=== PATIENT | female | born 1970 | race Hispanic/Latino ===

== ENCOUNTER 2016-12-09 08:15 | Outpatient (CLI) | payer BC ==
--- NOTE | 2016-12-10 10:46 | Mammography Report ---
BILATERAL DIGITAL SCREENING MAMMOGRAM with CAD: 12/09/16 08:15:00 CLINICAL: Routine screening. COMPARISON:11/21/15 FINDINGS: The breasts are almost entirely fatty. No mass, architectural distortion or suspicious calcifications. IMPRESSION: No mammographic evidence of malignancy. BI-RADS CATEGORY: 1 - - Negative RECOMMENDATION: Routine mammographic screening in one year. COMMENT: Patient follow-up letters are generated by our [employer] application.
== END 2016-12-09 08:16 | disposition home or self-care (01) ==
LOC: SPVWC 08:15
PROVIDERS: ATTEND Family Medicine
DX: Z12.31 Encounter for screening mammogram for malignant neoplasm of breast (principal)
CPT/HCPCS: 77067; G0202

== ENCOUNTER 2017-12-16 08:51 | Outpatient (CLI) | payer BC ==
--- NOTE | 2017-12-17 09:52 | Mammography Report ---
BILATERAL DIGITAL SCREENING MAMMOGRAM with CAD: 12/16/17 08:51:00 CLINICAL: Routine screening. COMPARISON:12/09/16 FINDINGS: The breasts are almost entirely fatty. No mass, architectural distortion or suspicious calcifications. IMPRESSION: No mammographic evidence of malignancy. BI-RADS CATEGORY: 1 - - Negative RECOMMENDATION: Routine mammographic screening in one year. COMMENT: Patient follow-up letters are generated by our [employer] application.
== END 2017-12-16 08:52 | disposition home or self-care (01) ==
LOC: SPVWC 08:51
PROVIDERS: ATTEND Family Medicine
DX: Z12.31 Encounter for screening mammogram for malignant neoplasm of breast (principal)
CPT/HCPCS: 77067

== ENCOUNTER 2020-01-20 17:27 | Emergency (ER) | payer BC, OTHER ==
--- NOTE | 2020-01-20 19:57 | Emergency Department Report ---
Blank Doc - Documentation Documentation: The patient was seen in triage for fall with pain to upper left femur . unable to ambulate due to pain Labs/imaging ordered to evaluate for a cause of this complaint. Vital signs reviewed, patient awake and alert in NAD. plan xray
--- NOTE | 2020-01-20 20:45 | XRay Report ---
LEFT FEMUR 2 VIEWS INDICATION / CLINICAL INFORMATION: fall with pain to upper femur COMPARISON: None available. FINDINGS: BONES / JOINT(S): No acute fracture or subluxation. No significant arthritis. SOFT TISSUES: No significant abnormality. ADDITIONAL FINDINGS: None. Signer Name: Bret Melgar MD Signed: 01/20/2020 8:40 PM Workstation Name: [id number]
--- NOTE | 2020-01-20 21:09 | Emergency Department Report ---
ED Lower Extremity HPI - General Chief Complaint: Extremity Injury, Lower Stated Complaint: (L) LEG PAIN FROM FALL Time Seen by Provider: 01/20/20 19:52 Source: patient Mode of arrival: Ambulatory Limitations: No Limitations - History of Present Illness Initial Comments: Patient is a 49-year-old female presents emergency room with complaints of left posterior leg pain that began just prior to arrival. She states that she was getting a pedicure and when she was getting out of the chair she slipped in some water and fell and states that she did a split. She states that she has been ambulatory with some discomfort. She denies ever injuring in the past. She denies any numbness or weakness. She denies any past medical history. She states that she has an adverse reaction to penicillin which causes yeast infections. - Related Data Home Medications Medication Instructions Recorded Confirmed Last Taken Aspirin EC [Halfprin EC] 81 mg PO QDAY 01/15/16 01/16/16 01/13/16 Biotin [Biotin 5mg] 5 mg PO QDAY 01/15/16 01/16/16 01/15/16 Mv,Armin,Min/Iron/Folic Acid/Lut 1 each PO QDAY 01/15/16 01/16/16 01/15/16 [Complete Multi Tablet] medroxyPROGESTERone ACETATE 20 mg PO QDAY 01/15/16 01/16/16 01/15/16 [Provera] Previous Rx's Medication Instructions Recorded Last Taken Type Naproxen [EC-Naproxen] 500 mg PO BID PRN #14 tablet. 01/20/20 Unknown Rx methOCARBAMOL [Robaxin TAB] 500 mg PO QHS PRN #10 tab 01/20/20 Unknown Rx Allergies Allergy/AdvReac Type Severity Reaction Status Date / Time Penicillins Allergy yeast Unverified 01/15/16 11:04 infection ED Review of Systems ROS: Stated complaint: (L) LEG PAIN FROM FALL Other details as noted in HPI Comment: All other systems reviewed and negative ED Past Medical Hx - Past Medical History Previous Medical History?: Yes Hx Hypertension: No Hx CVA: No Hx Congestive Heart Failure: No Hx Diabetes: No Hx Deep Vein Thrombosis: No Hx Arthritis: Yes Hx Headaches / Migraines: Yes (MIGRAINES) Hx Seizures: No Hx Asthma: Yes (1989) - Surgical History Past Surgical History?: No - Social History Smoking Status: Never Smoker Substance Use Type: None - Medications Home Medications: Home Medications Medication Instructions Recorded Confirmed Last Taken Type Aspirin EC [Halfprin EC] 81 mg PO QDAY 01/15/16 01/16/16 01/13/16 History Biotin [Biotin 5mg] 5 mg PO QDAY 01/15/16 01/16/16 01/15/16 History Mv,Armin,Min/Iron/Folic Acid/Lut 1 each PO QDAY 01/15/16 01/16/16 01/15/16 History [Complete Multi Tablet] medroxyPROGESTERone ACETATE 20 mg PO QDAY 01/15/16 01/16/16 01/15/16 History [Provera] Naproxen [EC-Naproxen] 500 mg PO BID PRN #14 tablet. 01/20/20 Unknown Rx methOCARBAMOL [Robaxin TAB] 500 mg PO QHS PRN #10 tab 01/20/20 Unknown Rx ED Physical Exam - General Limitations: No Limitations General appearance: alert, in no apparent distress - Head Head exam: Present: atraumatic, normocephalic - Eye Eye exam: Present: normal appearance - ENT ENT exam: Present: mucous membranes moist - Extremities Exam Extremities exam: Present: other (ttp over the left posterior thigh in the distribution of the hamstring muscles, FROM of the LLE, no bony ttp of the LLE, she has some discomfort with flexion of the hamstring muscles but it able to flex fully, no signs of complete ligamentous or tendon rupture, neurovascularly intact) - Neurological Exam Neurological exam: Present: alert, oriented X3 - Psychiatric Psychiatric exam: Present: normal affect, normal mood - Skin Skin exam: Present: warm, dry, intact ED Course Vital Signs 01/20/20 01/20/20 01/20/20 17:47 21:18 21:30 Temperature 97.4 F L Pulse Rate 81 85 Respiratory 20 18 18 Rate Blood Pressure 141/78 Blood Pressure 145/80 [Left] O2 Sat by Pulse 97 99 Oximetry ED Lower Extremity MDM - Radiology Data Radiology results: report reviewed LEFT FEMUR 2 VIEWS INDICATION / CLINICAL INFORMATION: fall with pain to upper femur COMPARISON: None available. FINDINGS: BONES / JOINT(S): No acute fracture or subluxation. No significant arthritis. SOFT TISSUES: No significant abnormality. ADDITIONAL FINDINGS: None. Signer Name: Bret Melgar MD Signed: 01/20/2020 8:40 PM Workstation Name: [email or web address] Transcribed By: ES Dictated By: Bret Melgar MD Electronically Authenticated By: Bret Melgar MD Signed Date/Time: 01/20/202039 DD/ 37 TD/TT: - Medical Decision Making Patient is a 49-year-old female presents emergency room with complaints of left posterior leg pain that began just prior to arrival. She states that she was getting a pedicure and when she was getting out of the chair she slipped in some water and fell and states that she did a split. She states that she has been ambulatory with some discomfort. She denies ever injuring in the past. She denies any numbness or weakness. She denies any past medical history. She states that she has an adverse reaction to penicillin which causes yeast infections. VSS. on exam: ttp over the left posterior thigh in the distribution of the hamstring muscles, FROM of the LLE, no bony ttp of the LLE, she has some discomfort with flexion of the hamstring muscles but it able to flex fully, no signs of complete ligamentous or tendon rupture, neurovascularly intact. XR left femur: No acute fracture or subluxation. No significant arthritis. SOFT TISSUES: No significant abnormality. Discussed results with patient. Patient's pain treated while in the emergency department as she did not drive. Patient given prescription for naproxen and Robaxin. Advised patient please take medication as prescribed. Do not drive or operate heavy machinery while taking muscle relaxer due to potential for drowsiness. May use ice pack, heating pad, rest, Epson salt bath, stretching. Follow-up with orthopedic doctor. Return to the emergency room for any new or worsening symptoms. - Differential Diagnosis Strain, sprain, fracture, dislocation, contusion, ligamentous/tendon injury Critical care attestation.: If time is entered above; I have spent that time in minutes in the direct care of this critically ill patient, excluding procedure time. ED Disposition Clinical Impression: Left hamstring muscle strain Qualifiers: Encounter type: initial encounter Qualified Code(s): S76.312A - Strain of muscle, fascia and tendon of the posterior muscle group at thigh level, left thigh, initial encounter Disposition: TO HOME OR SELFCARE Is pt being admited?: No Does the pt Need Aspirin: No Condition: Stable Instructions: Muscle Strain (ED) Additional Instructions: Please take medication as prescribed. Do not drive or operate heavy machinery while taking muscle relaxer due to potential for drowsiness. May use ice pack, heating pad, rest, Epson salt bath, stretching. Follow-up with orthopedic doctor. Return to the emergency room for any new or worsening symptoms. Prescriptions: methOCARBAMOL [Robaxin TAB] 500 mg PO QHS PRN #10 tab PRN Reason: Muscle Spasm Naproxen [EC-Naproxen] 500 mg PO BID PRN #14 tablet.dr TARIQ Reason: pain Referrals: ABIMAEL LERNER MD [Staff Physician] - 2-3 Days [facility] [Provider Group] - 2-3 Days Time of Disposition: 21:09 Print Language: JAPANESE
[2020-01-20] MEDS ORDERED: traMADol 50 MG TAB PO ONE (21:15)
[2020-01-20 23:41] VITALS: BP 145/80
== END 2020-01-20 21:30 | disposition home or self-care (01) ==
LOC: ED 17:27
DX: S76.312A Strain of muscle, fascia and tendon of the posterior muscle group at thigh level, left thigh, initial encounter (principal); G43.909 Migraine, unspecified, not intractable, without status migrainosus; M19.90 Unspecified osteoarthritis, unspecified site; J45.909 Unspecified asthma, uncomplicated; Z79.899 Other long term (current) drug therapy; Z88.0 Allergy status to penicillin; W17.89XA Other fall from one level to another, initial encounter; Y93.89 Activity, other specified; Y92.89 Other specified places as the place of occurrence of the external cause; Y99.8 Other external cause status